=== PATIENT | female | born 1990 | race Caucasian/White ===

== ENCOUNTER 2018-08-20 14:31 | Emergency (ER) | payer OTHER ==
[~2018-08-20] VITALS: Ht 162.6 cm; Wt 59.1 kg
[2018-08-20 14:45] VITALS: Ht 162.6 cm; Wt 59.1 kg
[2018-08-20] MEDS ORDERED: SOD CHLORIDE 0.9% 1,000 ML IV STA (14:50)
--- NOTE | 2018-08-20 15:26 | ERD ---
ER Documentation Chief Complaint Chief Complaint BIBA FOR DRUG USE(HEROIN).NARCAN GIVEN IN THE FIELD HPI This is a 27-year-old female that has a history of heroin abuse. The patient indicates she usually utilizes heroin intravenously. However today roughly 20 minutes prior to arrival she stated that she snorted heroin. She also utilized crystal meth at the same time. She denies alcohol use. She was found unresponsive by friends. 911 was called. The patient had agonal respirations and was unresponsive. She had pinpoint pupils and they administered Narcan and the patient returned to her baseline mental status. She denies any difficulty breathing. He has no chest pain. She denies a headache. She has no shortness of breath at rest or exertion. ROS All systems reviewed and are negative except as per history of present illness. Medications Home Meds No Active Prescriptions or Reported Meds Allergies Allergies: Coded Allergies: No Known Allergy (Unverified , 12/16/11) PMhx/Soc History of Surgery: No Anesthesia Reaction: No Hx Neurological Disorder: No Hx Respiratory Disorders: Yes (ASTHMA) Hx Cardiac Disorders: No Hx Psychiatric Problems: No Hx Miscellaneous Medical Probl: No Hx Alcohol Use: No Hx Substance Use: Yes (MARIJUANA,HEROIN) Hx Tobacco Use: Yes Smoking Status: Current every day smoker Physical Exam Vitals Vital Signs Date Temp Pulse Resp B/P (MAP) Pulse Ox O2 O2 Flow FiO2 Time Delivery Rate 08/20/18 98.0 111 20 121/88 99 14:45 (99) Physical Exam Constitutional:Well-developed. Well-nourished. Disheveled. HEENT:Normocephalic. Atraumatic.Pupils were equal round reactive to light. Moist mucous membranes.No tonsillar exudates. No nasal septal hematoma. No hemotympanum. Neck: No nuchal rigidity. No lymphadenopathy. No posterior cervical spine tenderness or step-offs. Respiratory: Not using accessory muscles of respiration.Lungs were clear to auscultation bilaterally. No rhonchi. No rales. No wheezing. Cardiovascular: Regular rate regular rhythm.No murmurs. No rubs were appreciated.S1, S2 normal. Distal pulses are palpable 2+ bilaterally. GI: Abdomen was soft. Nontender. Non Distended. No pulsatile abdominal masses or bruits. No rebound. No guarding. Bowel sounds were present and normal. Muscle skeletal: Full range of motion of both the upper and lower extremities bilaterally.Normal muscle tone.No assymetrical calf tenderness or swelling. Skin: No petechia, no purpura. No lesions on the palms or the soles of the feet. No maculopapular rash. NEURO: Patient was alert, awake, orientated x3.No facial droop. Gait observed and normal with no ataxia.Speech had regular rate and rhythm. No focal neurological deficits. Results 24 hrs Current Medications Medications Dose Sig/Mirza Start Time Status Last (Trade) Ordered Route PRN Stop Time Admin Dose Reason Admin Sodium 1,000 ml @ Q1H STAT 08/20/18 Chloride 1,000 mls/hr IV 14:50 08/20/18 15:49 Procedures/MDM The patient presented to the emergency department with an acute and persistent change in their mental status. The differential diagnosis is diverse however reversible causes such as hypoglycemia, opiate overdose, thiamine deficiency were immediately considered. The patient was placed on a school lunch monitor, continuous pulse oximetry and IV access was established. The patients airway was secure however hypoxic events such as anemia, shock, or severe pulmonary disease were all considered as etiologies in this patients presentation. Circulation assessed with good cap refill and did not require fluids or pressure support. Finger stick for rapid glucose determined to be normal. I did feel the patient's changes in her mental status have been a result of opiate overdose. I did obtain a 1 view chest radiograph which showed no evidence of infiltrates. No severe electrolyte abnormalities. The patient did not have any further episodes of agonal respirations or changes in her mental status after given intranasal Narcan by EMS. She was not a threat to herself or others and denied any suicidal homicidal thoughts or ideations. The patient was discharged home in fair condition. They were instructed to return to the emergency department at any time if there was any worsening of their condition. The patient stated they would follow up with their PCP in the next 24-48 hours to initiate a suitable medication regimen under the care of their PCP as well as to allow their PCP to monitor any drug reactions. The patient was discharged home with prescriptions after they gave informed consent to the new medication. They were also fully informed by myself on the adverse effects and adverse drug interactions in order to provide adequate safeguards to prevent possible adverse reactions to medications. Departure Diagnosis: Primary Impression: Drug overdose Encounter type: initial encounter Injury intent: accidental or unintentional Qualified Codes: T50.901A - Poisoning by unspecified drugs, medicaments and biological substances, accidental (unintentional), initial encounter Condition: COLLIN Alex MD Aug 20, 2018 15:26
[2018-08-20 18:02] VITALS: BP 110/75; PULSE 91; RESP 18
== END 2018-08-20 18:26 | disposition home or self-care (01) ==
LOC: E/R 14:31
DX: T40.1X1A Poisoning by heroin, accidental (unintentional), initial encounter (principal); R40.2142 Coma scale, eyes open, spontaneous, at arrival to emergency department; R40.2362 Coma scale, best motor response, obeys commands, at arrival to emergency department; R40.2252 Coma scale, best verbal response, oriented, at arrival to emergency department; J45.909 Unspecified asthma, uncomplicated; F17.210 Nicotine dependence, cigarettes, uncomplicated
CPT/HCPCS: 71045; 80053; 80307; 81001; 81025; 85025; J7030; Z7502